=== PATIENT | female | born 1970 | race Caucasian/White ===

== ENCOUNTER → 2018-01-27 15:24 | Outpatient (CLI) | payer MEDICARE, MEDICAID, SELFPAY ==
--- NOTE | 2018-01-27 15:38 | RAD_ITS ---
STUDY: X-RAY - PELVIS AND BILATERAL HIPS REASON FOR EXAM: Female, 47 years old. Pain TECHNIQUE: Radiological exam, hip, bilateral, with pelvis when performed; 3-4 views. 5 views obtained. COMPARISON: None. FINDINGS: There is a non-specific bowel gas pattern. Normal visualized soft tissue structures. Normal bilateral iliac wings, sacroiliac joints and visualized sacrum. Normal bilateral superior and inferior pubic rami. Normal pubic symphysis. Normal bilateral ischial tuberosities. Normal visualized right femoral head. Normal right acetabulum. Normal right hip joint. Left hip has been previously replaced. Components demonstrate anatomic alignment. No plain film evidence of hardware complication or failure. RAD/Hip 2-3 Views with Pelvis IMPRESSION: Replaced left hip joint demonstrates anatomic alignment. No plain film evidence of hardware complication or failure Normal right hip and remainder of the pelvis Electronically Signed: Stanford Garcia MD at 9:05 EDT , Service support ,
--- NOTE | 2018-01-27 15:39 | RAD_ITS ---
STUDY: X-RAY - LUMBAR SPINE REASON FOR EXAM: Female, 47 years old. Low back pain TECHNIQUE: 3 view(s) of the lumbar spine were obtained. COMPARISON: None FINDINGS: Normal lumbar lordosis. There is no substantial scoliosis. There is a normal alignment of the vertebrae. Normal vertebral bodies and endplates. Mild disc space narrowing. There is no demonstrated fracture. The soft tissue structures are unremarkable. RAD/Lumbar Spine 2 or 3 Views IMPRESSION: Mild degenerative changes, no demonstrated fracture or aggressive osseous lesion Electronically Signed: Stanford Garcia MD at 9:06 EDT , Service support ,
== END ==
PROVIDERS: Family Provider Internal Medicine; PCP Internal Medicine; Visit Provider Anesthesiology Pain Medicine
DX: M25.552 Pain in left hip (principal); M25.551 Pain in right hip; Z96.642 Presence of left artificial hip joint
CPT/HCPCS: 72100; 73502

== ENCOUNTER 2020-06-03 13:00 | Emergency (ER) | payer MEDICARE, MEDICAID, SELFPAY ==
[2020-06-03] VITALS (9 sets, daily range): BP systolic 89–121; BP diastolic 47–76; PULSE 64–83; RESP 13–20; TEMP 36–36.5; O2SAT 94–98; BMI 40.1
--- NOTE | 2020-06-03 13:25 | ED.VISSUMM ---
- ER Visit Summary Date of Service: 06/03/20 Chief Complaint: Hypotension History of Present Illness: The patient is a 50 F who presents with hypotension that was noticed today at the alf. Patient states that her blood pressure has been running low since her surgery at [facility]. Patient states she had an infection in her left hip and had removal of her hardware. Patient is on antibiotics and has an antibiotic ball in her left hip. Patient denies any fevers or chills. Patient denies any nausea or vomiting. Patient denies any dysuria or hematuria. Physical Examination: Vital signs are stable except for blood pressure of 97/69. Patient is afebrile. Patient is in no acute distress. Oral mucosa is pink and moist. Neck is supple. Trachea is midline. There is no JVD. Heart was regular rate and rhythm. Lungs are clear and equal bilaterally. Abdomen is soft. Bowel sounds are normal. There is no tenderness. Cranial nerves II through XII are intact. There are no focal motor or sensory deficits noted. Incisions on the left hip are clean and dry. There is no erythema or warmth noted. There is no discharge or drainage. Test Results: CBC shows a mild anemia with a hemoglobin of 8.6 and hematocrit of 28.1. Comprehensive metabolic profile was essentially within normal limits. Creatinine was slightly elevated at 1.28 but this is consistent with prior results. Urinalysis does not show any evidence of urinary tract infection. Portable 1 view chest x-ray was obtained. On my interpretation, lung villafana are clear. There is normal cardiac silhouette. Bony thorax is normal. There is no acute process noted. Radiologist also interpreted the x-ray and agrees. Emergency Department Course and Treatment: Patient was given IV fluids here. Patient states that her blood pressure is normally low. Patient states that while she was at [facility] getting blood transfusions her blood pressure dropped this low. Patient denies any symptoms. I feel the patient is safe to be discharged back to the extended care facility. Patient is agreeable with this. Patient understands. All questions were answered. Disposition: Discharge back to extended care facility Impression: 1. Hypotension This note was generated with [employer] dictation software. It may contain incorrect words, spelling, and punctuation that were not noted in review of the chart prior to signing ED Disposition - Plan for ED Patient: Disposition: Care Home Facility Diagnosis: Hypotension Instructions: ED Low Blood Pressure All Causes Referrals: Naheed Mcdonough MD [Primary Care Provider] - 3-5 Days
[2020-06-03] MEDS: 0.9% Normal Saline 1,000 ML 1000 ML IV ×2 (13:30→16:30)
[2020-06-03 13:41] LABS: Absolute Neutrophil Count 2.4 X10^3/uL (2.0-7.7); Basophil# 0.01 X10^3/uL; Basophil% 0.2 % (0-1); Eosinophil# 0.38 X10^3/uL; Eosinophils% 8.5 % (0-5); Hematocrit 28.1 % (37-47); Hemoglobin 8.6 g/dL (12.0-15.0); Lymphocyte % 29.1 % (19-41); Mean Corp Hgb Conc 30.6 g/dL (32-36); Mean Corpuscular Hgb 27.7 pg (27.0-32.0); Mean Corpuscular Volume 90.4 fL (81-99); Mean Platelet Vol. 8.7 fl (6.2-12.0); Monocyte# 0.31 X10^3/uL; NRBC Flagged by Analyzer 0 % (0-5); Neutrophil # 2.42 X10^3/uL (2.7-7.7); Neutrophil % 54.3 % (47-70); Platelet Count 331 K/mm3 (150-450); RBC Distribution Width CV 14.6 % (11.6-14.6); RBC Distribution Width SD 48.4 fl (35.1-43.9); Red Blood Count 3.11 M/mm3 (4.2-5.4); White Blood Count 4.5 K/mm3 (4.4-11.0)
[2020-06-03 13:53] LABS: ALB/GLOB Ratio 0.4 RATIO (0.9-2.4); AST(SGOT) 10 U/L (15-37); Alanine Aminotransfer ALT/SGPT 11 U/L (13-56); Albumin, Serum 1.9 g/dL (3.2-5.0); Alkaline Phosphatase 87 U/L (45-117); Anion Gap 8 (5-15); BUN 16 mg/dL (7-18); BUN/Creat Ratio 12.5 RATIO (10-20); Calcium,Total 8.6 mg/dL (8.5-10.1); Chloride 106 mmol/L (98-107); Creatinine, Serum 1.28 mg/dL (0.55-1.02); EST Glomerular Filtration Rate 47 mL/min (>60); Est Glom Filt Rate - Afr Amer 57 mL/min (>60); Globulin 4.5 g/dL (2.2-4.2); Glucose 158 mg/dL (74-106); Potassium 4.1 mmol/L (3.5-5.1); Protein, Total 6.4 g/dL (6.4-8.2); Sodium Level 138 mmol/L (136-145)
[2020-06-03 13:55] LABS: Lactic Acid 1.2 mmol/L (0.4-1.9)
--- NOTE | 2020-06-03 14:13 | RAD_ITS ---
STUDY: X-RAY CHEST REASON FOR EXAM: Female, 50 years old. HYPOTENSION TECHNIQUE: AP COMPARISON: 03/20/2016 FINDINGS: Left arm PICC is present with tip extending to the cavoatrial junction. The lungs are clear and expanded. There is no demonstrated pleural abnormality. Normal size heart. Normal mediastinum and juancho. Normal visualized pulmonary arteries. Normal visualized aortic arch and descending thoracic aorta. Normal visualized thoracic spine. Normal visualized ribs, clavicles, and shoulders. There is no demonstrated abnormality of the visualized soft tissue structures of the upper abdomen. RAD/Chest 1 View (Portable) IMPRESSION: No airspace consolidation or pleural effusion. Electronically Signed: Placido Ordaz MD ([place]) at 14:48 EST , Service support ,
[2020-06-03 15:16] LABS: Bacteria 0 SEEN /hpf (None Seen); Mucous, Urine 0 SEEN /hpf (<or=2+); Red Blood Cells-Urine 0 SEEN /hpf (0-5)
[2020-06-03 15:21] LABS: Color, Urine Yellow (Yellow); Glucose, Dipstick Normal (Normal); Ketone-Dipstick Negative (Negative); Leukocyte Esterase-Dipstick 25 /ul (Negative); Nitrite-Dipstick Negative (Negative); Occult Blood-Urine Negative /ul (Negative); Protein-Dipstick Negative (Negative); Urine Bilirubin Dipstick Negative (Negative); Urine Clarity Clear (Clear); Urine Urobilinogen Normal (Normal)
[2020-06-03 15:26] LABS: Squamous Epithelial Cells - UA 0-5 SEEN /hpf (5-10); White Blood Cells 0-5 SEEN /hpf (0-5)
[2020-06-03] MEDS: Acetaminophen 500 MG Tablet 1000 MG PO (17:27)
--- NOTE | 2020-06-03 17:48 | ED.RN ---
UPDATE GIVEN TO HERMAN SEGOVIA AT [facility] ABOUT PT DC
== END 2020-06-03 18:40 | disposition skilled nursing facility (03) ==
PROVIDERS: Emergency Provider Emergency Medicine; PCP Internal Medicine
DX: I95.9 Hypotension, unspecified (principal)
CPT/HCPCS: 36415; 36592; 71045; 80053; 81001; 83605; 85025; 87040; 96360; 96361; 99285; J7030; A4216

== ENCOUNTER 2021-09-18 09:24 | Emergency (ER) | payer MEDICARE, MEDICAID, SELFPAY ==
[2021-09-18 09:25] VITALS: BP 136/81; PULSE 82; RESP 16; TEMP 36.6; O2SAT 97; BMI 35.0
--- NOTE | 2021-09-18 09:45 | EX.ED.DYSGE1 ---
HPI History of Present Illness Chief Complaint: Lower Extremity Injury Informant: patient Narrative Narrative: Patient arrives by EMS with left leg pain after an injury on Thursday. Patient has chronic difficulty with mobility due to 6 surgeries that she has had on her left femur and hip area. This started with a infection that required drainage, repeat surgery, cementing, total hip and then removal. Last surgery was almost a year and a half ago. She was trying to get into her house and she has 2 steps that she needs help with. She and her son-in-law were going up the steps when the timing was off and she fell. She fell directly on the left leg. She never hit her head. She hurts in the proximal mid femur in the mid lower leg area. Her foot ankle and knee do not hurt. She states she always has pain in her hip because she really does not even have a hip joint anymore. She states if she is just laying in bed or laying down she really does not have pain but when she tries to walk, move the leg or her grandchildren climb on her it aggravates the area of pain. Of note, she has oxycodone listed on her med sheet on the computer but her online prescribing shows no narcotics at all in the last 2 years. She does have other controlled substances but no pain meds. Patient has not been having fevers or chills nausea or vomiting. This complaint of discomfort started immediately after a fall. She thinks it is probably just that she pulled something but wants to make sure she does not have any fractures. PFSH PFSH Home Medications Atenolol 50 mg PO DAILY 03/19/16 [History Last Taken Unknown] gabapentin 300 mg PO BID 03/19/16 [History Last Taken Unknown] insulin glargine [Lantus Solostar U-100 Insulin] 48 unit SQ QHS 03/19/16 [History Last Taken Unknown] insulin lispro [Humalog KwikPen Insulin] 18 unit SQ ACHS 03/19/16 [History Last Taken Unknown] ondansetron 4 mg PO DAILY PRN PRN 03/19/16 [History Last Taken Unknown] acetaminophen 650 mg PO Q4H PRN PRN 06/03/20 [History Last Taken Unknown] acetaminophen 650 mg RC Q4H PRN PRN 06/03/20 [History Last Taken Unknown] albuterol sulfate 2 puff IH DAILY 06/03/20 [History Last Taken Unknown] albuterol sulfate 2 puff INHALATION Q4H PRN PRN 06/03/20 [History Last Taken Unknown] alum-mag hydroxide-simeth 30 ml PO Q4H PRN PRN 06/03/20 [History Last Taken Unknown] ampicillin sodium 2 gm IV Q4H 06/03/20 [History Last Taken Unknown] bisacodyl 10 mg RC PRN PRN 06/03/20 [History Last Taken Unknown] dextrose 1 dose PO PRN PRN 06/03/20 [History Last Taken Unknown] glucagon HCl 1 mg IJ PRN PRN 06/03/20 [History Last Taken Unknown] guaifenesin 10 ml PO Q4H PRN PRN 06/03/20 [History Last Taken Unknown] hydroxyzine HCl 25 mg PO Q6H PRN PRN 06/03/20 [History Last Taken Unknown] ibuprofen 600 mg PO DAILY PRN 06/03/20 [History Last Taken Unknown] lisinopril 5 mg PO DAILY 06/03/20 [History Last Taken Unknown] lorazepam 0.5 mg PO Q8H PRN PRN 06/03/20 [History Last Taken Unknown] magnesium hydroxide 30 ml PO DAILY PRN PRN 06/03/20 [History Last Taken Unknown] oxycodone 5 mg PO Q4H PRN PRN 06/03/20 [History Last Taken Unknown] paroxetine HCl 20 mg PO DAILY 06/03/20 [History Last Taken Unknown] sodium phosphates 120 ml RECTAL X1 PRN 06/03/20 [History Last Taken Unknown] tizanidine 4 mg PO Q8H PRN PRN 06/03/20 [History Last Taken Unknown] Allergy/AdvReac Type Severity Reaction Status Date / Time beclomethasone dipropionate Allergy Other Verified 09/18/21 09:24 [From Qvar] topiramate [From Topamax] Allergy Other Verified 09/18/21 09:24 vancomycin AdvReac Diarrhea Verified 09/18/21 09:24 Social History Smoking Status: Never smoker ROS ROS ED Constitutional Constitutional ED: Denies chills, fever(s), subjective or sweats ENT ENT ED: Denies sore throat Cardiovascular Cardiovascular: Denies chest pain or palpitations Respiratory/Chest Respiratory/Chest: Denies cough or dyspnea Gastrointestinal Gastrointestinal: Denies diarrhea, nausea or vomiting Genitourinary Genitourinary ED: Denies hematuria Musculoskeletal Musculoskeletal: Reports other Details: See history of present illness. ; Denies back pain Integumentary Denies Abrasions or rash Neurologic Neurologic: Denies paresthesias or weakness Endocrine Endocrinology: Denies polydipsia or polyuria Allergic/Immunologic Allergic/Immunologic ED: Denies urticaria EXAM Physical Exam Const Vital Signs: 09/18/21 09:25 Temperature 97.8 F Temperature Source Temporal Pulse Rate 82 Respiratory Rate 16 Blood Pressure 136/81 H Blood Pressure Mean 99 Pulse Ox 97 Oxygen Delivery Method Room Air Positive well nourished and well developed Constitutional Narrative: Patient looks relaxed and comfortable while laying in bed. General Appearance ED: well developed and NAD HEENT Reports moist mucous membranes Negative for trauma Chest Wall inspection of chest normal Resp normal respiratory effort and clear to auscultation bilaterally Cardio regular rate GI normal to inspection, nondistended, normoactive bowel sounds and non-tender Palpation: soft Back/Spine no CVA tenderness Extremity Extremity Narrative: I can actually move her extremity reasonably well. She has some mild tenderness with palpation at the junction of the proximal and mid third of the left femur area. This is more in the medial leg. The pain does not seem to be centered as much in the inguinal region. There is no deformity. No pain with motion or palpation of the knee ankle or foot. There are some slight discomfort in the anterior medial colindres in the mid and junction of the lower third. But I see no bruising or contusions in that area at this time. Neuro oriented x3 Sensorium / Orientation: alert Psych mental status grossly normal Skin no rashes or lesions noted Skin Narrative: I do not see any notable contusions or abrasions at this time. MDM MDM MDM Narrative Medical decision making narrative: Patient's x-rays do not show any acute fracture. However, her femoral annamarie and acrylic cement has migrated within the acetabulum. But there is also reactive changes of the superior acetabulum and iliac bone that show that this is not an acute change. She told me that she does not have a hip and things have moved. I do not have comparison views because her most recent surgeries have all been done at [facility]. She will follow up with them. She is not really having hip pain. She is having mid thigh pain. She is comfortable going home. Because of her difficulty with mobility and steps into the house, she will need help so we will likely need ambulance to get her home and get her safely into her home where she can function well. Radiography Diagnostic Testing: Clinical Impression(s) from Imaging Studies Femur X-Ray 09/18/21 09:55 IMPRESSION: Status post intramedullary annamarie fixation device in the femoral shaft with cephalic migration of the femur overlying the acrylic cement in the acetabulum. Electronically Signed: Chad Amaya MD at 10:24 EST , Pelvis X-Ray 09/18/21 09:55 IMPRESSION: Cephalic migration of the femoral shaft in the acrylic cement within the left acetabulum fossa. Electronically Signed: Chad Amaya MD at 10:25 EST , Tibia/Fibula X-Ray 09/18/21 09:55 IMPRESSION: Normal x-ray examination of the tibia and fibula. Electronically Signed: Chad Amaya MD at 10:25 EST , Discharge Plan Triage Chief Complaint: Lower Extremity Injury ED Provider: Adan Thompson Dx/Rx/DC Orders Clinical Impression: Fall on steps, Contusion of left lower leg, initial encounter, Contusion of left thigh Instructions: ED Contusion, Lower Extremity Prescriptions: No Action Atenolol 50 MG tablet 50 mg PO DAILY RF: 0 gabapentin 300 MG capsule 300 mg PO BID RF: 0 ondansetron 4 MG tablet 4 mg PO DAILY PRN PRN (Reason: Nausea) RF: 0 insulin lispro [Humalog KwikPen Insulin] 100 UNIT/ML Insuln.Pen 18 unit SQ ACHS RF: 0 insulin glargine [Lantus Solostar U-100 Insulin] 100 UNITS/ML Pen 48 unit SQ QHS RF: 0 tizanidine 4 MG tablet 4 mg PO Q8H PRN PRN (Reason: Muscle Spasm) RF: 0 lorazepam 0.5 MG tablet 0.5 mg PO Q8H PRN PRN (Reason: Anxiety) RF: 0 paroxetine HCl 20 MG tablet 20 mg PO DAILY RF: 0 ampicillin sodium 2 GM recon soln 2 gm IV Q4H RF: 0 hydroxyzine HCl 25 MG tablet 25 mg PO Q6H PRN PRN (Reason: Anxiety) RF: 0 lisinopril 5 MG tablet 5 mg PO DAILY RF: 0 ibuprofen 600 MG tablet 600 mg PO DAILY PRN (Reason: Pain Score 1-10) RF: 0 albuterol sulfate 1 PUFF inhaler 2 puff INHALATION Q4H PRN PRN (Reason: Sob &/Or Wheezing) RF: 0 oxycodone 5 MG tablet 5 mg PO Q4H PRN PRN (Reason: Pain Score 1-10) RF: 0 albuterol sulfate 90 MCG aerosol powdr breath activated 2 puff IH DAILY RF: 0 magnesium hydroxide 30 ML suspension 30 ml PO DAILY PRN PRN (Reason: Constipation) RF: 0 acetaminophen 325 MG capsule 650 mg PO Q4H PRN PRN (Reason: Pain 1-10 Or Fever) RF: 0 glucagon HCl 1 MG recon soln 1 mg IJ PRN PRN (Reason: Hypoglycemia) RF: 0 acetaminophen 650 MG suppository 650 mg RC Q4H PRN PRN (Reason: Pain 1-10 Or Fever) RF: 0 dextrose 38 GM gel 1 dose PO PRN PRN (Reason: Hypoglycemia) RF: 0 guaifenesin 10 ML liquid 10 ml PO Q4H PRN PRN (Reason: Cough/Congestion) RF: 0 bisacodyl 10 MG suppository 10 mg RC PRN PRN (Reason: Constipation) RF: 0 sodium phosphates 1 BOTTLE enema 120 ml RECTAL X1 PRN (Reason: Constipation) RF: 0 alum-mag hydroxide-simeth 355 ML suspension 30 ml PO Q4H PRN PRN (Reason: GI DISTRESS) RF: 0 Primary Care Provider: Naheed Mcdonough Referrals: Naheed Mcdonough MD [Primary Care Provider] - 3-5 Days if not improving Disposition Disposition: Home, Self Care
--- NOTE | 2021-09-18 09:55 | RAD_ITS ---
STUDY: X-RAY - LEFT TIBIA AND FIBULA REASON FOR EXAM: Female, 51 years old. Trauma, pain TECHNIQUE: 3 view(s) of the tibia and fibula were obtained. COMPARISON: None. FINDINGS: Normal visualized tibia. Normal visualized fibula. The soft tissue structures are unremarkable. RAD/Tibia & Fibula 2 Views IMPRESSION: Normal x-ray examination of the tibia and fibula. Electronically Signed: Chad Amaya MD at 10:25 EST ,
--- NOTE | 2021-09-18 09:55 | RAD_ITS ---
STUDY: X-RAY - PELVIS REASON FOR EXAM: Female, 51 years old. Trauma TECHNIQUE: One view of the pelvis was obtained. COMPARISON: Comparison is made with prior study dated 01/27/2018. FINDINGS: The previously seen left total hip preplacement has been replaced with a colonic segment in the femoral head with cephalic migration of the femoral shaft. RAD/Pelvis 1 or 2 Views IMPRESSION: Cephalic migration of the femoral shaft in the acrylic cement within the left acetabulum fossa. Electronically Signed: Chad Amaya MD at 10:25 EST ,
--- NOTE | 2021-09-18 09:55 | RAD_ITS ---
STUDY: X-RAY - LEFT FEMUR REASON FOR STUDY: Female, 51 years old. Pain following a fall. TECHNIQUE: 3 view(s) of the femur. COMPARISON: Comparison is made with prior study dated 10/30/2015 FINDINGS: And intramedullary annamarie fixation device is seen within the femoral shaft. There is cephalic migration of the femur on the acrylic cement replacing the femoral head. Normal visualized soft tissue structure. RAD/Femur Min 2 Views IMPRESSION: Status post intramedullary annamarie fixation device in the femoral shaft with cephalic migration of the femur overlying the acrylic cement in the acetabulum. Electronically Signed: Chad Amaya MD at 10:24 EST ,
== END 2021-09-18 11:44 | disposition home or self-care (01) ==
PROVIDERS: Emergency Provider Emergency Medicine; PCP Internal Medicine; Visit Provider Emergency Medicine
DX: S80.12XA Contusion of left lower leg, initial encounter (principal); S70.12XA Contusion of left thigh, initial encounter; W10.9XXA Fall (on) (from) unspecified stairs and steps, initial encounter; Y93.9 Activity, unspecified; Y92.9 Unspecified place or not applicable
CPT/HCPCS: 72170; 73552; 73590; 99284

== ENCOUNTER 2021-09-26 16:35 | Inpatient (IN) | payer MEDICARE, MEDICAID, SELFPAY ==
[2021-09-26 16:36] VITALS: BP 143/104; PULSE 117; RESP 16; TEMP 36.9; O2SAT 97; BMI 33.6
--- NOTE | 2021-09-26 17:07 | CT_ITS ---
STUDY: CT ABDOMEN AND PELVIS WITHOUT CONTRAST REASON FOR EXAM: Female, 51 years old. Left flank pain RADIATION DOSAGE (If Supplied By Facility): CTDIvol = ( 19.85 ) mGy, DLP = ( 1016.85 ) mGycm TECHNIQUE: Transaxial images were obtained from the dome of the diaphragm to the symphysis pubis without oral contrast, and without intravenous contrast. Sagittal and coronal images were reconstructed. Individualized dose optimization techniques were used for this CT. COMPARISON: None. FINDINGS: The visualized lung bases are unremarkable. The visualized portions of the heart are within normal limits. Normal liver. There are multiple gallstones. Normal spleen. Normal pancreas. Normal bilateral adrenal glands. Mild bilateral hydroureter without obstructing stones. Nonobstructing left upper pole. Extensive left perinephric stranding. Normal visualized stomach. Normal small intestine. Normal colon. The appendix is visualized and appears normal. Normal abdominal aorta. Normal inferior vena cava. There is borderline retroperitoneal lymphadenopathy with enlarged nodes no greater than 10mm in the short axis diameter. Normal urinary bladder. Normal uterus. Normal abdominal wall. Heterogeneous increased attenuation around the left hip likely represent scarring or atelectasis. Left proximal femur hardware. CT/Abdomen/Pelvis without Cont IMPRESSION: Moderate bilateral hydroureter with extensive periureteral stranding may represent infection or sequelae of a passed stone. Nonobstructing left upper pole renal calculus. No ureteral or bladder stones identified. Gallstones. Electronically Signed: Bubba Quintero MD at 18:44 EDT ,
--- NOTE | 2021-09-26 17:20 | EX.ED.DYSGE1 ---
HPI <CYNDIE Ordonez - Last Filed: 09/26/21 19:42> History of Present Illness Chief Complaint: Flank Pain Narrative Narrative: 51-year-old female with PMH of HTN, DM2, asthma, kidney stones presents with a few day history of left flank pain radiating around to her left lower abdomen. She has nausea but no vomiting. She reports urinary frequency with no hematuria or dysuria. She is having normal daily bowel movements. She has had previous she had kidney stones multiple times in 1 required surgical intervention. She previously saw a urologist, Dr. Kahn, in [place]. Of note she had not been taking her Metformin or insulin since June but refilled it last week and is restarted everything. She states her blood sugars have been running around 350. PFS <CYNDIE Ordonez - Last Filed: 09/26/21 19:42> [facility] Medical History (Updated 09/26/21 @ 22:[address] Adan Thompson MD) Anxiety Asthma Bipolar disorder COPD (chronic obstructive pulmonary disease) Depression Hypertension Kidney stones Migraines Home Medications Lantus Solostar U-100 Insulin 18 unit SQ QHS 03/19/16 [History Last Taken Unknown] insulin lispro [Humalog KwikPen Insulin] 8 unit SQ ACHS 03/19/16 [History Last Taken Unknown] albuterol sulfate 2 puff INHALATION Q4H PRN PRN 06/03/20 [History Last Taken Unknown] lisinopril 2.5 mg PO DAILY 06/03/20 [History Last Taken 09/26/21] lorazepam 0.5 mg PO BID PRN PRN 06/03/20 [History Last Taken Unknown] aripiprazole [Abilify] 5 mg PO DAILY 09/26/21 [History Last Taken 09/26/21] duloxetine 30 mg PO BID 09/26/21 [History Last Taken 09/26/21] oxybutynin chloride 15 mg PO DAILY 09/26/21 [History Last Taken 09/26/21] Allergy/AdvReac Type Severity Reaction Status Date / Time beclomethasone dipropionate Allergy Other Verified 09/26/21 16:38 [From Qvar] topiramate [From Topamax] Allergy Other Verified 09/26/21 16:38 vancomycin AdvReac Diarrhea Verified 09/26/21 16:38 Family History Other COPD (chronic obstructive pulmonary disease) Diabetes Heart disease Surgical History History of tooth extraction Previous section Social History Smoking Status: Never smoker ROS <CYNDIE Ordonez - Last Filed: 09/26/21 19:42> ROS ED ROS Narrative Constitutional: Negative for fever, chills, malaise. Eyes: Negative for visual change. ENT: Negative for sore throat, ear pain, rhinorrhea. CVS: Negative for palpitations, chest pain, syncope. Respiratory: Negative for shortness of breath, cough, orthopnea. GI: Positive for abdominal pain, nausea. Negative for vomiting, diarrhea, constipation, melena, hematochezia. : Positive for frequency. Negative for dysuria, hematuria. Neuro: Negative for headache, motor/sensory dysfunction. Skin: Negative for rash, abscess, or wound. Musc: Negative for joint pain, swelling, trauma. Heme: Negative for easy bruising, bleeding, lymphadenopathy. EXAM <CYNDIE Ordonez - Last Filed: 09/26/21 19:42> Physical Exam Narrative Exam Narrative: CONST: Patient sitting in no acute distress. EYES: Normal inspection. ENT: Normal inspection, moist mucous membranes. NECK: Normal inspection. RESP: No respiratory distress, CTAB. CVS: Regular rate and rhythm, no murmur, no gallop. ABD: Soft with slight left mid and lower abdominal tenderness, no guarding or rebound, nondistended, no hepatosplenomegaly. Back: Normal inspection, no CVA tenderness. SKIN: Color normal, no rash, warm, dry, intact. EXTREMITIES: Normal appearance, no pedal edema. NEURO: Oriented x4. PSYCH: Normal affect. Const Vital Signs: 09/26/21 16:36 Temperature 98.5 F Temperature Source Temporal Pulse Rate 117 H Respiratory Rate 16 Blood Pressure 143/104 H Blood Pressure Mean 117 Pulse Ox 97 Oxygen Delivery Method Room Air <Dr. Adan Thompson MD - Last Filed: 09/26/21 22:56> Physical Exam Const Vital Signs: 09/26/21 16:36 Temperature 98.5 F Temperature Source Temporal Pulse Rate 117 H Respiratory Rate 16 Blood Pressure 143/104 H Blood Pressure Mean 117 Pulse Ox 97 Oxygen Delivery Method Room Air [facility] <CYNDIE Ordonez - Last Filed: 09/26/21 19:42> [facility] Narrative Medical decision making narrative: Patient presents with left flank pain and urinary frequency. She appears well nontoxic. She was tachycardic at 117, otherwise unremarkable. On exam her she has moist mucous membranes. Heart is rapid but regular. Lungs clear to auscultation. Abdomen soft with slight left lower quadrant tenderness but no peritoneal signs. No CVA tenderness. Labs show normal white count. She is hyperglycemic at 491 with normal anion gap. BUN/creatinine is 25/1.36 which is minimally elevated from previous labs a few years ago. UA is consistent with UTI and was cultured. CT shows moderate bilateral hydroureter with extensive periureteral stranding. There is no visible acute kidney stone. She was treated with IV fluids, Rocephin, and 12 units of insulin. Case was discussed with the hospitalist who was agreeable to observation. Diagnoses 1. Pyelonephritis, left 2. Diabetic hyperglycemia 3. Dehydration Lab Data Labs: Laboratory Results - last 24 hr 09/26/21 09/26/21 09/26/21 17:14 17:14 18:00 WBC 10.1 RBC 5.21 Hgb 14.0 Hct 41.8 MCV 80.2 L MCH 26.9 L MCHC 33.5 RDW Std Deviation 38.4 RDW Coeff of Odalys 13.2 Plt Count 404 MPV 9.3 Immature Gran % (Auto) 1.200 H Neut % (Auto) 73.3 H Lymph % (Auto) 17.8 L [place] % (Auto) 6.5 Eos % (Auto) 0.8 Baso % (Auto) 0.4 Absolute Neuts (auto) 7.4 Absolute Lymphs (auto) 1.80 Nucleated RBC % 0 Sodium 126 L Potassium 4.6 Chloride 92 L Carbon Dioxide 25.0 Anion Gap 9 BUN 25 H Creatinine 1.36 H Estim Creat Clear Calc 41.78 Est GFR (MDRD) Af Amer 52 L Est GFR (MDRD) Non-Af 43 L BUN/Creatinine Ratio 18.4 Glucose 491 H* Calcium 9.8 Urine Color Yellow Urine Clarity Cloudy Urine pH 5.0 Ur Specific [place] 1.015 Urine Protein 100 H Urine Glucose (UA) 1000 H Urine Ketones Negative Urine Occult Blood 150 H Urine Nitrite Positive H Urine Bilirubin Negative Urine Urobilinogen Normal Ur Leukocyte Esterase 100 H Urine RBC 0-5 SEEN Urine WBC >100 SEEN Ur Squamous Epith Cells 0-5 SEEN Urine Bacteria 2+ Urine Mucus 0 SEEN Radiography Diagnostic Testing: Clinical Impression(s) from Imaging Studies Abdomen/Pelvis CT 09/26/21 17:07 IMPRESSION: Moderate bilateral hydroureter with extensive periureteral stranding may represent infection or sequelae of a passed stone. Nonobstructing left upper pole renal calculus. No ureteral or bladder stones identified. Gallstones. Electronically Signed: Bubba Quintero MD at 18:44 EDT , <Dr. Adan Thompson MD - Last Filed: 09/26/21 22:56> [facility] MDM Narrative Medical decision making narrative: Patient is having some frequency along with malodorous urine and left flank pain. She has had a lot of nausea and does not feel like she can eat but has not actually vomited. She does have a fair amount of discomfort. She was concerned she might have a kidney stone. Patient does have CVA tenderness. Her abdomen is overall benign for me though. Lungs are clear. Patient does not have a white count. But her glucose is quite high. Her urine is strongly positive for urine infection and her CT shows a lot of inflammatory changes all the way up in the left kidney consistent with pyelonephritis. With her illness overall, diabetes, high sugar, pain nausea I think observation in the hospital for hydration sugar control antibiotics is appropriate. Lab Data Labs: Laboratory Results - last 24 hr 09/26/21 09/26/21 09/26/21 17:14 17:14 18:00 WBC 10.1 RBC 5.21 Hgb 14.0 Hct 41.8 MCV 80.2 L MCH 26.9 L MCHC 33.5 RDW Std Deviation 38.4 RDW Coeff of Odalys 13.2 Plt Count 404 MPV 9.3 Immature Gran % (Auto) 1.200 H Neut % (Auto) 73.3 H Lymph % (Auto) 17.8 L [place] % (Auto) 6.5 Eos % (Auto) 0.8 Baso % (Auto) 0.4 Absolute Neuts (auto) 7.4 Absolute Lymphs (auto) 1.80 Nucleated RBC % 0 Sodium 126 L Potassium 4.6 Chloride 92 L Carbon Dioxide 25.0 Anion Gap 9 BUN 25 H Creatinine 1.36 H Estim Creat Clear Calc 41.78 Est GFR (MDRD) Af Amer 52 L Est GFR (MDRD) Non-Af 43 L BUN/Creatinine Ratio 18.4 Glucose 491 H* Calcium 9.8 Urine Color Yellow Urine Clarity Cloudy Urine pH 5.0 Ur Specific [place] 1.015 Urine Protein 100 H Urine Glucose (UA) 1000 H Urine Ketones Negative Urine Occult Blood 150 H Urine Nitrite Positive H Urine Bilirubin Negative Urine Urobilinogen Normal Ur Leukocyte Esterase 100 H Urine RBC 0-5 SEEN Urine WBC >100 SEEN Ur Squamous Epith Cells 0-5 SEEN Urine Bacteria 2+ Urine Mucus 0 SEEN Radiography Diagnostic Testing: Clinical Impression(s) from Imaging Studies Abdomen/Pelvis CT 09/26/21 17:07 IMPRESSION: Moderate bilateral hydroureter with extensive periureteral stranding may represent infection or sequelae of a passed stone. Nonobstructing left upper pole renal calculus. No ureteral or bladder stones identified. Gallstones. Electronically Signed: Bubba Quintero MD at 18:44 EDT , Discharge Plan Dx/Rx/DC Orders Clinical Impression: Pyelonephritis, Hyperglycemia, Nausea Disposition Disposition: Acute Care Hospital [facility] Discharge Date/Time: 09/26/21 20:26
[2021-09-26] MEDS: 0.9% Normal Saline 1,000 ML 999 ML IV (17:21)
[2021-09-26] MEDS: Morphine 4 MG/ML Syringe IV (17:22)
[2021-09-26] MEDS: Ondansetron 4 MG/2 ML Vial IV ×2 (17:22→22:05)
[2021-09-26 17:29] LABS: Absolute Neutrophil Count 7.4 X10^3/uL (2.0-7.7); Basophil# 0.04 X10^3/uL; Basophil% 0.4 % (0-1); Eosinophil# 0.08 X10^3/uL; Eosinophils% 0.8 % (0-5); Hematocrit 41.8 % (37-47); Lymphocyte % 17.8 % (19-41); Mean Corp Hgb Conc 33.5 g/dL (32-36); Mean Corpuscular Hgb 26.9 pg (27.0-32.0); Mean Corpuscular Volume 80.2 fL (81-99); Mean Platelet Vol. 9.3 fl (6.2-12.0); Monocyte# 0.66 X10^3/uL; Monocyte% 6.5 % (0-10); NRBC Flagged by Analyzer 0 % (0-5); Neutrophil % 73.3 % (47-70); Platelet Count 404 K/mm3 (150-450); RBC Distribution Width CV 13.2 % (11.6-14.6); RBC Distribution Width SD 38.4 fl (35.1-43.9); Red Blood Count 5.21 M/mm3 (4.2-5.4); White Blood Count 10.1 K/mm3 (4.4-11.0)
[2021-09-26 17:50] LABS: Anion Gap 9 (5-15); BUN 25 mg/dL (7-18); BUN/Creat Ratio 18.4 RATIO (10-20); Calcium,Total 9.8 mg/dL (8.5-10.1); Chloride 92 mmol/L (98-107); Creatinine, Serum 1.36 mg/dL (0.55-1.02); EST Glomerular Filtration Rate 43 mL/min (>60); Est Glom Filt Rate - Afr Amer 52 mL/min (>60); Estimated Creatinine Clearance 41.78 ml/min; Glucose 491 mg/dL (74-106); Potassium 4.6 mmol/L (3.5-5.1); Sodium Level 126 mmol/L (136-145)
[2021-09-26 18:16] LABS: Mucous, Urine 0 SEEN /hpf (<or=2+)
[2021-09-26 18:46] LABS: Color, Urine Yellow (Yellow); Glucose, Dipstick 1000 mg/dl (Normal); Ketone-Dipstick Negative (Negative); Leukocyte Esterase-Dipstick 100 /ul (Negative); Nitrite-Dipstick Positive (Negative); Occult Blood-Urine 150 /ul (Negative); Protein-Dipstick 100 mg/dl (Negative); Specific Gravity, Urine 1.015 (1.002-1.030); Urine Bilirubin Dipstick Negative (Negative); Urine Clarity Cloudy (Clear); Urine Urobilinogen Normal (Normal)
[2021-09-26 18:54] LABS: Squamous Epithelial Cells - UA 0-5 SEEN /hpf (5-10); White Blood Cells >100 SEEN /hpf (0-5)
[2021-09-26 18:55] LABS: Bacteria 2+ /hpf (None Seen); Red Blood Cells-Urine 0-5 SEEN /hpf (0-5)
--- NOTE | 2021-09-26 19:50 | PCM.HP.STD ---
HPI - General General Date of Admission: 09/26/21 HPI Narrative RICARDO AGUILAR, is a 51 F with a significant history of asthma; COPD; bipolar; major depression; chronic pain who presents to emergency department with progressively worsening excruciating left flank pain that started about 5 days prior to presentation. Her pain is nonradiating. She described the pain as sharp, stabbing and aching. The pain improves with rest and worsens with moving. She receives a morphine emergency department and that helped with her pain. Associated with her symptoms is nausea, subjective fever, chills and rigors. Further, she has anorexia. She reports a history of multiple kidney stones with one required surgical interventions. Reportedly she ran out of her insulin and recently had it refilled. She report that at home her blood glucose was elevated and it was 535. She reports recently being started on Metformin. However with Metformin she has been having upset stomach. PFSH Home Medications Lantus Solostar U-100 Insulin 48 unit SQ QHS 03/19/16 [History Last Taken Unknown] insulin lispro [Humalog KwikPen Insulin] 18 unit SQ ACHS 03/19/16 [History Last Taken Unknown] ondansetron 4 mg PO DAILY PRN PRN 03/19/16 [History Last Taken Unknown] albuterol sulfate 2 puff IH DAILY 06/03/20 [History Last Taken Unknown] albuterol sulfate 2 puff INHALATION Q4H PRN PRN 06/03/20 [History Last Taken Unknown] alum-mag hydroxide-simeth 30 ml PO Q4H PRN PRN 06/03/20 [History Last Taken Unknown] bisacodyl 10 mg RC PRN PRN 06/03/20 [History Last Taken Unknown] dextrose 1 dose PO PRN PRN 06/03/20 [History Last Taken Unknown] glucagon HCl 1 mg IJ PRN PRN 06/03/20 [History Last Taken Unknown] guaifenesin 10 ml PO Q4H PRN PRN 06/03/20 [History Last Taken Unknown] ibuprofen 600 mg PO DAILY PRN 06/03/20 [History Last Taken Unknown] lisinopril 2.5 mg PO DAILY 06/03/20 [History Last Taken Unknown] lorazepam 0.5 mg PO Q8H PRN PRN 06/03/20 [History Last Taken Unknown] magnesium hydroxide 30 ml PO DAILY PRN PRN 06/03/20 [History Last Taken Unknown] paroxetine HCl 20 mg PO DAILY 06/03/20 [History Last Taken Unknown] sodium phosphates 120 ml RECTAL X1 PRN 06/03/20 [History Last Taken Unknown] tizanidine 4 mg PO Q8H PRN PRN 06/03/20 [History Last Taken Unknown] oxybutynin chloride 15 mg PO DAILY 09/26/21 [History Last Taken Unknown] Allergy/AdvReac Type Severity Reaction Status Date / Time beclomethasone dipropionate Allergy Other Verified 09/26/21 16:38 [From Qvar] topiramate [From Topamax] Allergy Other Verified 09/26/21 16:38 vancomycin AdvReac Diarrhea Verified 09/26/21 16:38 Family History Other COPD (chronic obstructive pulmonary disease) Diabetes Heart disease Surgical History History of tooth extraction Previous section Social History Smoking Status: Never smoker ROS ROS Narrative Constitutional: Denies fever, chills, fatigue, anorexia and change in weight Eyes: Denies blurry vision, change in eye color, change in vision, discharge from eye(s), double vision, erythema, eye pain, loss of vision or other HEENT: Denies abnormal hearing, dysphagia, ear pain, epistaxis, headache(s), hearing loss, nasal congestion, nasal discharge, post nasal drip, sinus pressure, sore throat or other Cardiovascular: Denies chest pain or palpitations. Denies dyspnea on exertion, orthopnea and paroxysmal nocturnal dyspnea Respiratory/Chest: Denies cough, excessive phlegm production, shortness of breath with exertion and wheezing Gastrointestinal: Reports nausea. Denies vomiting. Genitourinary: Increased frequency of urination. Denies burning urination. Musculoskeletal: Denies arthralgias, back pain, joint pain, joint stiffness, joint swelling, myalgias, neck pain or other Neurologic: Denies abnormal gait, abnormal speech, confusion, disequilibrium, dizziness, focal weakness, headache(s), numbness, paresthesias, seizure-like activity, seizures, syncope, tingling, tremor(s) or other Psychiatric: Denies anxiety, depression, homicidal ideation, suicidal ideation or other Endocrinology: Denies change in body appearance, cold intolerance, excessive sweating, heat intolerance, polydipsia, polyuria or other Hematologic/Lymphatic: Denies anemia, easy bleeding, easy bruising, lymphadenopathy or other Integumentary: Denies rashes Allergic/Immunologic: Denies rhinitis, hives, eczema, or other Vital Signs Vital Signs Vital Signs: 09/26/21 16:36 Temperature 98.5 F Temperature Source Temporal Pulse Rate 117 H Respiratory Rate 16 Blood Pressure 143/104 H Blood Pressure Mean 117 Pulse Ox 97 Oxygen Delivery Method Room Air Weight Weight: 88.904 kg Body Mass Index (BMI) 33.6 Physical Exam Narrative Physical exam: General: Well-nourished, well-developed. Head: Normocephalic, atraumatic, no tenderness Eyes: PERRLA, EOMI ENT, no trauma, moist mucous membranes, no rhinorrhea Neck: Nontender, full range of motion, no spinal tenderness, deformities, step-off CVS: Regular rate and rhythm. S1-S2 present. No murmur, gallop or rub. Respiratory : clear to auscultation bilaterally, chest wall nontender, no wheezing Abdomen: Soft, tender left side of abdomen. Nondistended, normal bowel sounds, no masses : Deferred Back: Nontender, no CVA tenderness, no midline spinal tenderness, deformities, step-offs Extremities: Nontender full range of motion, no trauma Skin: Normal color, no trauma, abrasions Neuro: Alert, oriented, cranial nerves II through XII grossly intact. Psychiatry: Normal mood. Normal affect. Not depressed. Not anxious. Results Lab / Micro Data Result Diagrams: 09/26/21 17:14 09/26/21 17:14 Labs: Laboratory Results - last 24 hr 09/26/21 17:14: WBC 10.1, RBC 5.21, Hgb 14.0, Hct 41.8, MCV 80.2 L, MCH 26.9 L, MCHC 33.5, RDW Std Deviation 38.4, RDW Coeff of Odalys 13.2, Plt Count 404, MPV 9.3, Immature Gran % (Auto) 1.200 H, Neut % (Auto) 73.3 H, Lymph % (Auto) 17.8 L, [place] % (Auto) 6.5, Eos % (Auto) 0.8, Baso % (Auto) 0.4, Absolute Neuts (auto) 7.4, Absolute Lymphs (auto) 1.80, Nucleated RBC % 0 09/26/21 17:14: Sodium 126 L, Potassium 4.6, Chloride 92 L, Carbon Dioxide 25.0, Anion Gap 9, BUN 25 H, Creatinine 1.36 H, Estim Creat Clear Calc 41.78, Est GFR (MDRD) Af Amer 52 L, Est GFR (MDRD) Non-Af 43 L, BUN/Creatinine Ratio 18.4, Glucose 491 H*, Calcium 9.8 09/26/21 18:00: Urine Color Yellow, Urine Clarity Cloudy, Urine pH 5.0, Ur Specific [place] 1.015, Urine Protein 100 H, Urine Glucose (UA) 1000 H, Urine Ketones Negative, Urine Occult Blood 150 H, Urine Nitrite Positive H, Urine Bilirubin Negative, Urine Urobilinogen Normal, Ur Leukocyte Esterase 100 H, Urine RBC 0-5 SEEN, Urine WBC >100 SEEN, Ur Squamous Epith Cells 0-5 SEEN, Urine Bacteria 2+, Urine Mucus 0 SEEN Radiology Impression Abdomen/Pelvis CT 09/26/21 17:07 IMPRESSION: Moderate bilateral hydroureter with extensive periureteral stranding may represent infection or sequelae of a passed stone. Nonobstructing left upper pole renal calculus. No ureteral or bladder stones identified. Gallstones. Electronically Signed: Bubba Quintero MD at 18:44 EDT Reading Location ID and State: [facility] Tel , Service support , Assessment & Plan Assessment/Plan (1) Pyelonephritis: (2) Diabetes: QUALIFIERS: Diabetes mellitus type: type 2 Diabetes mellitus skilled nursing insulin use: with exterminator use Diabetes mellitus complication status: with kidney complications Chronic kidney disease stage: stage 3 (moderate) Chronic kidney disease stage 3 subtype: stage 3a (GFR 45-59) Diabetes mellitus complication detail: with chronic kidney disease Qualified Code(s): E11.22 - Type 2 diabetes mellitus with diabetic chronic kidney disease; N18.31 - Chronic kidney disease, stage 3a; Z79.4 - exterminator (current) use of insulin PLAN: Acute pyelonephritis Urinalysis showed positive nitrite; elevated leukocyte esterase; pyuria of more than 100; normal squamous epithelial cells and 2+ bacteria. Follow urine culture. Likely secondary to infected kidney stone. Likely kidney stone has passed. Abdomen and pelvis CT was visualized and independently interpreted and agree with radiologist interpretation of moderate bilateral hydroureter with extensive periureteral stranding. Nonobstructing left upper pole renal calculus. Supportive treatment with IV hydration. As needed IV morphine and Toradol for pain. As needed IV Zofran for antiemetics Diabetes mellitus Patient with hyperglycemia on presentation Received lispro 12 units subcutaneous at emergency department. Basal and prandial insulin ordered. Accu-Chek QA CHS with correction scale insulin ordered. Hyponatremia Review of ED labs showed sodium of 126, and chloride of 92. Gentle IV hydration. Trend BMP. DVT prophylaxis SCD ordered Charges/Coding Visit Charges OBSV E&M: 70064 Initial observation care L3
[2021-09-26] MEDS: Ceftriaxone 1 GM/50 ML BAG IV (20:02)
[2021-09-26] MEDS: Insulin Lispro 100 UNIT/ML INSULN.PEN 12 UNIT SC (20:02)
[2021-09-26 20:05] VITALS: BP 178/74; PULSE 112; RESP 16; TEMP 36.6; O2SAT 96
[2021-09-26 20:43] VITALS: BP 154/89; PULSE 104; RESP 18; TEMP 36.8; O2SAT 95
[2021-09-26 20:47] VITALS: BMI 33.9
[2021-09-26] MEDS: 0.9% Normal Saline 1,000 ML 75 ML IV (22:05)
[2021-09-26 22:16] LABS: Bedside Glucose 343 mg/dL (74-106)
[2021-09-26] MEDS: Insulin Lispro 100 UNIT/ML INSULN.PEN SC (22:18)
[2021-09-26] MEDS: DULoxetine Hcl 30 MG Capsule PO (22:20)
[2021-09-26] MEDS: Morphine 2 MG/ML Syringe IV (22:25)
[2021-09-27 02:54] VITALS: BP 131/92; PULSE 101; RESP 18; TEMP 36.4; O2SAT 98
[2021-09-27] MEDS: 0.9% Saline Lock 10 ML Syringe IV ×2 (03:10→21:35)
[2021-09-27] MEDS: Morphine 2 MG/ML Syringe IV ×4 (03:13→21:36)
[2021-09-27 06:25] LABS: Bedside Glucose 375 mg/dL (74-106)
[2021-09-27 06:52] LABS: Absolute Lymphocyte Count 1.82 X10^3/uL (0.83-4.51); Absolute Neutrophil Count 5.6 X10^3/uL (2.0-7.7); Basophil# 0.02 X10^3/uL; Basophil% 0.2 % (0-1); Eosinophils% 2.4 % (0-5); Hematocrit 37.8 % (37-47); Hemoglobin 12.4 g/dL (12.0-15.0); Lymphocyte # 1.82 X10^3/ul (0.83-4.51); Lymphocyte % 21.8 % (19-41); Mean Corp Hgb Conc 32.8 g/dL (32-36); Mean Corpuscular Hgb 25.8 pg (27.0-32.0); Mean Corpuscular Volume 78.6 fL (81-99); Mean Platelet Vol. 9.2 fl (6.2-12.0); Monocyte# 0.58 X10^3/uL; Monocyte% 6.9 % (0-10); NRBC Flagged by Analyzer 0 % (0-5); Neutrophil # 5.63 X10^3/uL (2.7-7.7); Neutrophil % 67.5 % (47-70); Platelet Count 359 K/mm3 (150-450); RBC Distribution Width CV 13.2 % (11.6-14.6); RBC Distribution Width SD 37.8 fl (35.1-43.9); Red Blood Count 4.81 M/mm3 (4.2-5.4); White Blood Count 8.4 K/mm3 (4.4-11.0)
[2021-09-27 07:13] LABS: Anion Gap 6 (5-15); BUN 21 mg/dL (7-18); BUN/Creat Ratio 19.8 RATIO (10-20); Chloride 100 mmol/L (98-107); Creatinine, Serum 1.06 mg/dL (0.55-1.02); EST Glomerular Filtration Rate 58 mL/min (>60); Est Glom Filt Rate - Afr Amer 70 mL/min (>60); Estimated Creatinine Clearance 53.61 ml/min; Glucose 347 mg/dL (74-106); Potassium 3.9 mmol/L (3.5-5.1); Sodium Level 130 mmol/L (136-145)
[2021-09-27 07:19] VITALS: O2SAT 95
--- NOTE | 2021-09-27 07:37 | US_ITS ---
EXAM: US RETROPERITONEAL COMPLETE, RENAL CLINICAL INDICATION: ILANA. TECHNIQUE: Grayscale and color Doppler sonographic evaluation of the retroperitoneum was performed. This report was created using [employer] report generation technology. COMPARISON: 09/26/2021. FINDINGS: RIGHT KIDNEY: Unremarkable. No hydronephrosis. No shadowing calculus. No focal lesion. No perinephric collection is demonstrated. LEFT KIDNEY: Contour abnormality of the left mid kidney is felt to represent a lobulation. No discrete renal mass. No hydronephrosis. Left renal calculus is better seen on CT from yesterday. No perinephric collection is demonstrated. BLADDER: No acute findings. US/Kidney and Bladder IMPRESSION: No hydronephrosis. Electronically Signed: Placido Ordaz MD ([place]) at 12:53 EDT ,
[2021-09-27] MEDS: Insulin Lispro 100 UNIT/ML INSULN.PEN 8 UNIT SC ×3 (08:20→17:05)
[2021-09-27] MEDS: Insulin Lispro 100 UNIT/ML INSULN.PEN SC ×4 (08:21→21:47)
[2021-09-27] MEDS: ARIPiprazole 5 MG Tablet PO (08:21)
[2021-09-27] MEDS: Tolterodine Tartrate 4 MG CAP.SA PO (08:21)
[2021-09-27] MEDS: DULoxetine Hcl 30 MG Capsule PO ×2 (08:21→21:46)
[2021-09-27] MEDS: Lisinopril 2.5 MG Tablet PO (08:22)
[2021-09-27 08:25] VITALS: BP 132/77; PULSE 113; RESP 18; TEMP 36.8; O2SAT 94
[2021-09-27 08:41] LABS: Bedside Glucose 349 mg/dL (74-106)
--- NOTE | 2021-09-27 11:49 | PN.HOSP_ITS ---
Subjective Subjective feels better. still with left flank pain. Objective Data Objective Data Vital Signs: Vital Signs Temp Pulse Resp BP Pulse Ox 36.8 C 113 H 18 132/77 H 94 09/27/21 08:25 09/27/21 08:25 09/27/21 08:25 09/27/21 08:25 09/27/21 08:25 Oxygen Delivery Method Room Air Weight: 89.7 kg Body Mass Index (BMI) 33.9 Intake & Output: Intake and Output for Last 24 Hours 09/25/21 09/26/21 09/27/21 23:59 23:59 23:59 Intake Total 1050 / 1050 1056.25 / 1056.25 Balance 1050 / 1050 1056.25 / 1056.25 Lab / Micro Data Result Diagrams: 09/27/21 05:50 09/27/21 05:50 Labs: Laboratory Results - last 24 hr 09/26/21 17:14: WBC 10.1, RBC 5.21, Hgb 14.0, Hct 41.8, MCV 80.2 L, MCH 26.9 L, MCHC 33.5, RDW Std Deviation 38.4, RDW Coeff of Odalys 13.2, Plt Count 404, MPV 9.3, Immature Gran % (Auto) 1.200 H, Neut % (Auto) 73.3 H, Lymph % (Auto) 17.8 L , [place] % (Auto) 6.5, Eos % (Auto) 0.8, Baso % (Auto) 0.4, Absolute Neuts (auto) 7.4, Absolute Lymphs (auto) 1.80, Nucleated RBC % 0 09/26/21 17:14: Sodium 126 L, Potassium 4.6, Chloride 92 L, Carbon Dioxide 25.0, Anion Gap 9, BUN 25 H, Creatinine 1.36 H, Estim Creat Clear Calc 41.78, Est GFR (MDRD) Af Amer 52 L, Est GFR (MDRD) Non-Af 43 L, BUN/Creatinine Ratio 18.4, Glucose 491 H*, Calcium 9.8 09/26/21 18:00: Urine Color Yellow, Urine Clarity Cloudy, Urine pH 5.0, Ur Spe cific [place] 1.015, Urine Protein 100 H, Urine Glucose (UA) 1000 H, Urine Ketones Negative, Urine Occult Blood 150 H, Urine Nitrite Positive H, Urine Bilirubin Negative, Urine Urobilinogen Normal, Ur Leukocyte Esterase 100 H, Urine RBC 0-5 SEEN, Urine WBC >100 SEEN, Ur Squamous Epith Cells 0-5 SEEN, Urine Bacteria 2+, Urine Mucus 0 SEEN 09/26/21 22:08: POC Glucose 343 H 09/27/21 05:50: WBC 8.4, RBC 4.81, Hgb 12.4, Hct 37.8, MCV 78.6 L, MCH 25.8 L, MCHC 32.8, RDW Std Deviation 37.8, RDW Coeff of Odalys 13.2, Plt Count 359, MPV 9.2, Immature Gran % (Auto) 1.200 H, Neut % (Auto) 67.5, Lymph % (Auto) 21.8, [place] % (Auto) 6.9, Eos % (Auto) 2.4, Baso % (Auto) 0.2, Absolute Neuts (auto) 5.6, Absolute Lymphs (auto) 1.82, Nucleated RBC % 0 09/27/21 05:50: Sodium 130 L, Potassium 3.9, Chloride 100, Carbon Dioxide 24.0, Anion Gap 6, BUN 21 H, Creatinine 1.06 H, Estim Creat Clear Calc 53.61, Est GFR (MDRD) Af Amer 70, Est GFR (MDRD) Non-Af 58 L, BUN/Creatinine Ratio 19.8, Glucose 347 H, Calcium 9.0 09/27/21 06:22: POC Glucose 375 H 09/27/21 08:19: POC Glucose 349 H Radiography Diagnostic Testing: Radiology Impression Abdomen/Pelvis CT 09/26/21 17:07 IMPRESSION: Moderate bilateral hydroureter with extensive periureteral stranding may represent infection or sequelae of a passed stone. Nonobstructing left upper pole renal calculus. No ureteral or bladder stones identified. Gallstones. Electronically Signed: Bubba Quintero MD at 18:44 EDT , Physical Exam Const alert and no apparent distress Resp normal respiratory effort, no retractions and no use of accessory muscles Cardio regular rate, regular rhythm, S1 normal heart sound and S2 normal heart sound GI normal to inspection, nondistended, normoactive bowel sounds, soft to palpation, non-tender and non-distended GI Narrative: slight left flank pain Extremity normal to inspection Psych affect normal Assessment & Plan Assessment/Plan (1) Pyelonephritis: (2) Hydronephrosis: QUALIFIERS: Hydronephrosis type: unspecified Qualified Code(s): N13.30 - Unspecified hydronephrosis PLAN: 1. pyelonephritis on CTX UCx with GNR 2. hydronephrosis bilaterally check US may need to consult has seen Dr. Walters in [place]. She is open to seeing a urologist locally. 3. DM2 uncontrolled increase glargine continue prandial and SSI 4. VTE prophylaxis: SCDs Charges/Coding Visit Charges Inpatient E&M: 56528 Subs Hosp L2
[2021-09-27] MEDS: LORazepam 0.5 MG Tablet PO ×2 (12:01→23:25)
[2021-09-27 12:11] LABS: Bedside Glucose 238 mg/dL (74-106)
--- NOTE | 2021-09-27 14:15 | CASEMGMT ---
JULIETTE DANIEL PATTERN STORAGE CLERK CM to room to meet with patient for initial transition planning/care coordination assessment. JULIETTE DANIEL introduced self and role at [facility]. Pt voices understanding and consents to assessment at this time. Pt resting in bed in no distress at this time. Pt is A/O at this time and answers all questions appropriately. Care providers, pharmacy, and demographics verified/updated at this time. PCP: Dr Mcdonough Specialists: Dr Kahn--[facility] Preferred Pharmacy: [facility] for short-term fill. Pt states she normally gets her rx's through [facility] delivery, but they do not deliver after 4 PM or on weekends. Insurance: [facility] Dual Prescription Benefit: Yes Medications: Pt states she has all her home medications and insulin now. She states she has not taken her Metformin or insulin since June, because she had ran out of them and was not able to get to the doctor because of transportation issues. She denies having any transportation concerns now. Living Will/HPOA: Pt does not currently have LW/HCPOA and would like to complete. Merary GROVER, made aware. LNOK: Daughter, Hortensia. 2 sons. Living Arrangements: Lives w/dtr, Hortensia, and 4 grandchildren, ages: 8,7,3, and 2. Pt able to bath and dress herself. Hortensia assists her w/washing her hair in the kitchen sink. Pt manages her own medications and appts, but Hortensia takes her to appts. Hortensia does home mgmt tasks. Pt states interested in getting an aide to help w/home tasks and grocery shopping. Merary GROVER, maribeth aware and to provide information on [facility] and waiver program. Transportation: Hortensia provides transportation. Pt does not drive. DME: States has the following DME: rollator, W/C, shower chair, functioning glucometer and testing supplies. Pt states is interested in medical alert button. Provided list of local companies that have these. Pt denies further DME needs. HHC/SNF: Hx of [facility] and [facility] and has had [facility] in the past. Pt states she would like HHC. Pt was provided with list of providers including quality and resource use data and consistent with the patient's preferred geographic region, medical needs, and insurance network. The pt's preferred provider is [facility]. MS Vannessa3 RN CM made aware and will make referral. Pt wishes to return home and states has no concerns with going home at time of discharge. CM to follow for any further discharge planning/needs. Pt voices no further concerns/needs at this time. Advised pt to ask for CM if any further questions/concerns/needs arise. Voices understanding. PLAN: Home w/HHC and family support. Wolfgang DOMINIQUEN RN CM
--- NOTE | 2021-09-27 14:18 | CASEMGMT ---
Addendum entered by Vannessa Alvarado 09/27/21 16:02: Received confirmation that [facility] will see patient either Thursday or Thursday if dc'd tomorrow. Pt aware. Green sheet on chart. Addendum entered by Vannessa Alvarado 09/27/21 14:41: Received tc back from Cassandra at [facility] who states they cannot accept pt insurance. RN CM in to pt room, pt second choice is [facility]. TC to Concihta at [facility] and referral faxed. Awaiting acceptance. Original Note: TC to Cassandra at [facility] to make referral for pt. She will review and notify of acceptance.
[2021-09-27 14:50] VITALS: BP 101/66; PULSE 112; RESP 18; TEMP 36.5; O2SAT 95
[2021-09-27] MEDS: 0.9% Normal Saline 1,000 ML 75 ML IV (17:08)
[2021-09-27 17:11] LABS: Bedside Glucose 288 mg/dL (74-106)
[2021-09-27 20:05] VITALS: BP 110/72; PULSE 101; RESP 18; TEMP 36.5; O2SAT 98
[2021-09-27] MEDS: Ceftriaxone 1 GM/50 ML BAG IV (21:44)
[2021-09-27] MEDS: Menthol/Lanolin/Calamine/Znox 113 GM Tube 1 APPLIC TOPICAL (21:49)
[2021-09-27 21:56] LABS: Bedside Glucose 209 mg/dL (74-106)
[2021-09-28 03:39] VITALS: BP 112/73; PULSE 104; RESP 18; TEMP 36.8; O2SAT 96
[2021-09-28] MEDS: Morphine 2 MG/ML Syringe IV ×2 (03:40→07:26)
[2021-09-28] MEDS: 0.9% Saline Lock 10 ML Syringe IV (03:41)
[2021-09-28] MEDS: 0.9% Normal Saline 1,000 ML 75 ML IV (05:47)
[2021-09-28 06:57] LABS: Anion Gap 3 (5-15); BUN 22 mg/dL (7-18); BUN/Creat Ratio 20.8 RATIO (10-20); Calcium,Total 8.5 mg/dL (8.5-10.1); Chloride 104 mmol/L (98-107); Creatinine, Serum 1.06 mg/dL (0.55-1.02); EST Glomerular Filtration Rate 58 mL/min (>60); Est Glom Filt Rate - Afr Amer 70 mL/min (>60); Estimated Creatinine Clearance 53.61 ml/min; Glucose 280 mg/dL (74-106); Potassium 4.5 mmol/L (3.5-5.1); Sodium Level 134 mmol/L (136-145)
[2021-09-28 07:25] LABS: Bedside Glucose 222 mg/dL (74-106)
[2021-09-28] MEDS: LORazepam 0.5 MG Tablet PO (07:26)
[2021-09-28] MEDS: Insulin Lispro 100 UNIT/ML INSULN.PEN SC (07:26)
[2021-09-28] MEDS: Insulin Lispro 100 UNIT/ML INSULN.PEN 8 UNIT SC ×2 (07:27→12:46)
[2021-09-28] MEDS: ARIPiprazole 5 MG Tablet PO (07:27)
[2021-09-28] MEDS: Lisinopril 2.5 MG Tablet PO (07:27)
[2021-09-28] MEDS: DULoxetine Hcl 30 MG Capsule PO (07:28)
[2021-09-28] MEDS: Menthol/Lanolin/Calamine/Znox 113 GM Tube 1 APPLIC TOPICAL (07:28)
[2021-09-28] MEDS: Tolterodine Tartrate 4 MG CAP.SA PO (07:29)
[2021-09-28 08:37] VITALS: BP 113/75; PULSE 86; RESP 16; TEMP 36.4; O2SAT 95
[2021-09-28 11:31] LABS: Bedside Glucose 141 mg/dL (74-106)
[2021-09-28 11:38] VITALS: BP 93/55; PULSE 96; RESP 16; TEMP 36.4; O2SAT 98
--- NOTE | 2021-09-28 12:30 | PCM.DC ---
Discharge Instructions Diet Discharge Diet: No restrictions Activity Discharge Activity: Return to Normal Activity Dressing / Incision Call your doctor if you observe: Fever of 101 or Higher and Inability to urinate Follow Up Care Test Results: Test results from this visit will be discussed in further detail at your follow-up appointment, if applicable. Discharge Plan Admission Admit Date/Time: 09/27/21 11:34 Primary Reason for Your Visit: Pyelonephritis Attending Provider: Juni Gudino Primary Care Provider: Naheed Mcdonough Discharge Orders/Prescriptions Prescriptions: New oxycodone 5 mg capsule 5 mg PO Q8H PRN (Reason: pain) 3 Days Qty: 9 RF: 0 levofloxacin 750 mg tablet 750 mg PO DAILY Qty: 6 RF: 0 acetaminophen 500 mg capsule 500 mg PO Q4H PRN (Reason: fever or pain) Qty: 30 RF: 0 Continued insulin lispro [Humalog KwikPen Insulin] 100 UNIT/ML insulin pen 8 unit SQ ACHS RF: 0 Lantus Solostar U-100 Insulin 100 UNITS/ML insulin pen 18 unit SQ QHS RF: 0 lorazepam 0.5 MG tablet 0.5 mg PO BID PRN PRN (Reason: Anxiety) RF: 0 lisinopril 5 MG tablet 2.5 mg PO DAILY RF: 0 albuterol sulfate 1 PUFF inhaler 2 puff INHALATION Q4H PRN PRN (Reason: Sob &/Or Wheezing) RF: 0 oxybutynin chloride 15 mg tablet extended release 24hr 15 mg PO DAILY RF: 0 aripiprazole [Abilify] 5 mg Tablet 5 mg PO DAILY RF: 0 duloxetine 30 mg Capsule,Delayed Release(Dr/Ec) 30 mg PO BID RF: 0 Referrals / Follow Up: Sola Heaton MD [STAFF PHYSICIAN] - Within 1 Month Naheed Mcdonough MD [Primary Care Provider] - Within 2 Weeks Disposition Disposition (needs filled in before D/C Order can be placed): Home Health Service
--- NOTE | 2021-09-28 12:41 | PCM.DC.SUM ---
Providers Date of Admission: 09/27/21 Primary Care Physician: Dr. Naheed Mcdonough MD Reason For Visit: PYELONEPHRITIS, HYPERGLYCEMIA Diagnosis Discharge Diagnosis (1) Pyelonephritis: Status: Acute Code(s): N12 - Tubulo-interstitial nephritis, not specified as acute or chronic (2) Hydronephrosis: Status: Acute Code(s): N13.30 - Unspecified hydronephrosis Qualifiers: Hydronephrosis type: unspecified Qualified Code(s): N13.30 - Unspecified hydronephrosis Medications at Discharge Home Medications Lantus Solostar U-100 Insulin 18 unit SQ QHS 03/19/16 insulin lispro [Humalog KwikPen Insulin] 8 unit SQ ACHS 03/19/16 albuterol sulfate 2 puff INHALATION Q4H PRN PRN 06/03/20 lisinopril 2.5 mg PO DAILY 06/03/20 lorazepam 0.5 mg PO BID PRN PRN 06/03/20 aripiprazole [Abilify] 5 mg PO DAILY 09/26/21 duloxetine 30 mg PO BID 09/26/21 oxybutynin chloride 15 mg PO DAILY 09/26/21 acetaminophen 500 mg PO Q4H PRN #30 cap 09/28/21 levofloxacin 750 mg PO DAILY #6 tab 09/28/21 oxycodone 5 mg PO Q8H PRN 3 Days #9 cap 09/28/21 Hospital Course Procedures None Summary of Care Provided Minutes Spent on Discharge: 32 Hospital Course: This is a 51-year-old female presents with left flank pain that began 5 days prior to arrival. CAT scan showed periureteral stranding as well as hydronephrosis. Concern was for pyelonephritis and patient was started on ceftriaxone. Ultrasound of her kidneys showed no hydronephrosis. Culture came back showing a pansensitive E. coli. Patient will complete a 7-day course of antibiotics with levofloxacin. Patient is otherwise stable and discharged home in stable condition. Patient had previously been seeing Dr. Kahn in [place] but would for to see urology locally. Referral be made to Dr. Heaton for follow up. Patient previously had kidney stones but ultrasound showed no evidence of any stones present. Physical Exam Const alert and no apparent distress Resp normal respiratory effort, no retractions, no use of accessory muscles and clear to auscultation bilaterally Cardio regular rate, regular rhythm, S1 normal heart sound and S2 normal heart sound GI normal to inspection, nondistended, normoactive bowel sounds, soft to palpation, non-tender and non-distended Extremity normal to inspection and full ROM Weight / BMI Weight Weight: 89.7 kg Body Mass Index (BMI) 33.9 ABG / Lab / Microbiology Data Result Diagrams: 09/27/21 05:50 09/28/21 05:24 Laboratory: Laboratory Results - last 24 hr 09/27/21 17:03: POC Glucose 288 H 09/27/21 21:33: POC Glucose 209 H 09/28/21 05:24: Sodium 134 L, Potassium 4.5, Chloride 104, Carbon Dioxide 27.0, Anion Gap 3 L, BUN 22 H, Creatinine 1.06 H, Estim Creat Clear Calc 53.61, Est GFR (MDRD) Af Amer 70, Est GFR (MDRD) Non-Af 58 L, BUN/Creatinine Ratio 20.8 H, Glucose 280 H, Calcium 8.5 09/28/21 07:18: POC Glucose 222 H 09/28/21 11:26: POC Glucose 141 H Microbiology: Microbiology 09/26/21 18:00 Urine, Clean Catch Urine Culture - Final Escherichia coli Radiography Diagnostic Testing: Radiology Impression Renal Ultrasound 09/27/21 07:37 IMPRESSION: No hydronephrosis. Electronically Signed: Placido Ordaz MD ([place]) at 12:53 EDT Reading Location ID and State: [address] [place] [address] , Service support , D/C Instructions Discharge Diet: No restrictions Call your doctor if you observe: Fever of 101 or Higher and Inability to urinate Meaningful Use Info Meaningful Use Diagnoses (Choose all that apply): None applicable Discharge Plan Admission Admit Date/Time: 09/27/21 11:34 Primary Reason for Your Visit: Pyelonephritis Attending Provider: Juni Gudino Primary Care Provider: Naheed Mcdonough Discharge Orders/Prescriptions Prescriptions: New oxycodone 5 mg capsule 5 mg PO Q8H PRN (Reason: pain) 3 Days Qty: 9 RF: 0 levofloxacin 750 mg tablet 750 mg PO DAILY Qty: 6 RF: 0 acetaminophen 500 mg capsule 500 mg PO Q4H PRN (Reason: fever or pain) Qty: 30 RF: 0 Continued insulin lispro [Humalog KwikPen Insulin] 100 UNIT/ML insulin pen 8 unit SQ ACHS RF: 0 Lantus Solostar U-100 Insulin 100 UNITS/ML insulin pen 18 unit SQ QHS RF: 0 lorazepam 0.5 MG tablet 0.5 mg PO BID PRN PRN (Reason: Anxiety) RF: 0 lisinopril 5 MG tablet 2.5 mg PO DAILY RF: 0 albuterol sulfate 1 PUFF inhaler 2 puff INHALATION Q4H PRN PRN (Reason: Sob &/Or Wheezing) RF: 0 oxybutynin chloride 15 mg tablet extended release 24hr 15 mg PO DAILY RF: 0 aripiprazole [Abilify] 5 mg Tablet 5 mg PO DAILY RF: 0 duloxetine 30 mg Capsule,Delayed Release(Dr/Ec) 30 mg PO BID RF: 0 Referrals / Follow Up: Sola Heaton MD [STAFF PHYSICIAN] - Within 1 Month Naheed Mcdonough MD [Primary Care Provider] - Within 2 Weeks Disposition Disposition (needs filled in before D/C Order can be placed): Home Health Service Charges/Coding Visit Charges Inpatient E&M: 63862 Disch Hosp
[2021-09-28 13:00] VITALS: O2SAT 96
--- NOTE | 2021-09-28 14:01 | CM.ED ---
LENORE Note Referral Source: [facility] Referral Reason: Advanced Directives and Information on [facility] [place] LENORE met with patient, who has been discharged, and advised her that she can complete the Advanced Directives and needs 2 witnesses or a notary to witness her signature. LENORE also provided printout from [facility]ute and their contact information and the services they provide. No other issues or concerns voiced. Plan: Home with resources Anum PATEL
== END 2021-09-28 14:40 | disposition home health service (06) | DRG 690 ==
LOC: ED 19:56 → MS3 20:06
PROVIDERS: Admitting Provider Hospitalist; Emergency Provider Physician Assistant; PCP Internal Medicine
DX: N10 Acute pyelonephritis (principal); N13.4 Hydroureter; E11.22 Type 2 diabetes mellitus with diabetic chronic kidney disease; E11.65 Type 2 diabetes mellitus with hyperglycemia; B96.20 Unspecified Escherichia coli [E. coli] as the cause of diseases classified elsewhere; I12.9 Hypertensive chronic kidney disease with stage 1 through stage 4 chronic kidney disease, or unspecified chronic kidney disease; Z79.4 Long term (current) use of insulin; J44.9 Chronic obstructive pulmonary disease, unspecified; N18.31 Chronic kidney disease, stage 3a; Z79.899 Other long term (current) drug therapy; Z87.442 Personal history of urinary calculi
CPT/HCPCS: 36415; 74176; 76770; 80048; 81001; 82962; 85025; 87077; 87086; 87088; 87186; 99284; J7030; A4216; J2405